=== PATIENT | female | born 1970 | race Caucasian/White ===

== ENCOUNTER → 2018-02-09 | Outpatient (CLI) | payer BC, OTHER ==
--- NOTE | 2018-02-12 14:02 | MAM ---
EXAM DESCRIPTION: 3D Screening BILATERAL : Digital Mammography. CLINICAL HISTORY: 47 years Female ANNUAL SCREENING . No complaints or personal history of breast cancer. Remote family history of breast cancer. Childbirth. Menopausal 6 years. HRT currently. Lifetime risk of developing breast cancer (Tyrer-Cuzick model)(%): 8.6. COMPARISON: 2-D digital screening bilateral mammography 01/09/2013.. No prior reports available. TECHNIQUE: Bilateral CC and MLO projection full-field images, digital tomosynthesis mammographic technique. Bilateral digital 2-D full-field MLO images. CAD not utilized. FINDINGS: The breast parenchymal density pattern is: Scattered areas of fibroglandular density. No skin thickening or nipple retraction. Bilateral axillary lymph nodes. Stable small mass density, most likely benign in the anterior, inferior, and medial right breast. No new focal, stellate mass or density, focal asymmetry , and no suspicious microcalcifications bilaterally. Stable mammograms compared to prior study. Taking into account, differences in mammographic technique. IMPRESSION: Benign exam. BIRAD CATEGORY: 2 BENIGN FINDINGS. RECOMMENDATIONS: FOLLOW UP: Routine digital bilateral mammographic screening, one year interval from February 2018. Written communication explaining the IMPRESSION and follow-up, will be mailed to the patient and referring health care provider. According to the [employer], yearly mammograms are recommended starting at age 40 and continuing as long as a woman is in good health. Any breast change noted on a breast self-exam should be reported promptly to the patient's healthcare provider. Breast MRI is recommended for women with an approximately 20-25% or greater lifetime risk of breast cancer, including women with a strong family history of breast or ovarian cancer and women who have been treated for Hodgkin's disease. A negative mammographic report should not delay tissue diagnosis in patients with significant clinical history or physical findings. Extremely dense breast tissue limits the sensitivity of digital mammography. Electronically signed by: Rogelio Cleary MD 02/12/2018 2:00 PM HEALTH SAFETY AND ENVIRONMENT MANAGER
== END ==
LOC: MAMMO 10:34
PROVIDERS: ATTEND Obstetrics & Gynecology
DX: Z12.31 Encounter for screening mammogram for malignant neoplasm of breast (principal)

== ENCOUNTER → 2019-03-11 | Outpatient (CLI) | payer BC | LOC: GMA MATASK 10:37 | PROVIDERS: ATTEND Family Medicine | DX: E03.9 Hypothyroidism, unspecified (principal); I10 Essential (primary) hypertension ==

== ENCOUNTER → 2020-03-12 | Outpatient (CLI) | payer BC | LOC: GMA MATASK 14:29 | PROVIDERS: ATTEND Family Medicine | DX: Z00.01 Encounter for general adult medical examination with abnormal findings (principal); E03.9 Hypothyroidism, unspecified ==

== ENCOUNTER 2020-05-08 05:48 | Day surgery (SDC) | payer BC ==
[2020-05-08] MEDS ORDERED: PROPOFOL 200 MG/20 ML VIAL IV ONE (05:49)
[2020-05-08] MEDS ORDERED: LIDOCAINE 1% 10 ML VIAL INJ ONE (05:49)
[2020-05-08] MEDS ORDERED: LACTATED RINGERS 1,000 ML ONE (05:57)
--- NOTE | 2020-05-08 10:13 | OP ---
DATE OF PROCEDURE: 05/08/20 PREOPERATIVE DIAGNOSIS: 1. Screening colonoscopy. 2. Family history. POSTOPERATIVE DIAGNOSIS: 1. Screening colonoscopy. 2. Family history. PROCEDURE: 1. Colonoscopy with biopsy, mid transverse 2 mm polyp. SURGEON: Octaviano Delgadillo MD ANESTHESIA: General, Haile Ham CRNA. PROCEDURE: General anesthesia was induced in the lateral position. Digital rectal exam was normal. The colonoscope was inserted with minimal difficulty all the way to the cecum, which was identified by the terminal ileum, appendiceal orifice and ileocecal valve. Upon withdrawal, the mucosal surfaces appeared normal. There was one small, 2 mm polyp seen in the mid transverse colon area. This was excised completely with no bleeding. Upon further withdrawal, no other polyps were seen with an adequate prep. The patient tolerated the procedure and was taken to Recovery to be discharged. #[id number] cc: Atul Chavis MD [email or web address]
[2020-05-08] MEDS ORDERED: MORPHINE SULFATE INJ 10 MG/ML VIAL ONE (10:20)
[2020-05-08 11:12] VITALS: BP 146/94; TEMP 97.9; O2SAT 100
== END 2020-05-08 11:10 | disposition home or self-care (01) ==
LOC: AMB 05:48
PROVIDERS: ATTEND Surgery
DX: Z12.11 Encounter for screening for malignant neoplasm of colon (principal); D12.3 Benign neoplasm of transverse colon; E78.00 Pure hypercholesterolemia, unspecified; Z80.0 Family history of malignant neoplasm of digestive organs; Z90.710 Acquired absence of both cervix and uterus; Z79.899 Other long term (current) drug therapy
CPT/HCPCS: 00812; 45380; J2270; J3490; J7120